=== PATIENT | female | born 1940 | race Caucasian/White ===

== ENCOUNTER → 2018-02-06 16:50 | Outpatient (CLI) | payer MEDICARE, OTHER, SELFPAY ==
[2018-02-06 18:29] LABS: BUN Creatinine Ratio 27.1 (6-22); Blood Urea Nitrogen 19 mg/dL (7-17); Estimated Glomerular Filt Rate > 60.0 mL/min (>60)
== END ==
PROVIDERS: Family Provider Physician Assistant; Visit Provider Physician Assistant
DX: R33.9 Retention of urine, unspecified (principal); R60.9 Edema, unspecified; G20 Parkinson's disease
CPT/HCPCS: 36415; 82565; 84520

== ENCOUNTER → 2018-05-12 10:40 | Outpatient (CLI) | payer MEDICARE, OTHER, SELFPAY ==
[2018-05-12 11:47] LABS: Add Manual Diff / Slide Review NO; Basophils Percent Auto 0.4 % (0-2); Eosinophils Percent Auto 0.8 % (2-4); Hematocrit 43.3 % (36-46); Hemoglobin 14.4 g/dL (12.0-16.0); Lymphocytes Percent Auto 23.7 % (25-40); Mean Corpuscular HGB Conc 33.2 % (30-36); Mean Corpuscular Hemoglobin 31.6 PG (26-34); Mean Corpuscular Volume 95.1 fL (80-100); Monocytes Percent Auto 4.9 % (3-14); Neutrophils Absolute Auto 5300 /uL (3000-5900); Neutrophils Percent Auto 70.2 % (50-75); Platelet Count 198 X10^3/uL (150-400); Red Blood Cell Count 4.55 X10^6/uL (4.0-5.2); Red Cell Distribution Width 13.8 % (11.6-14.8); White Blood Cell Count 7.6 X10^3/uL (4.5-11.0)
[2018-05-12 12:06] LABS: Alanine Aminotransferase 24 IU/L (9-52); Albumin 4.3 g/dL (3.5-5.0); Albumin Globulin Ratio 1.7 (1.0-2.8); Alkaline Phosphatase 62 U/L (38-126); Aspartate Aminotransferase 19 IU/L (14-36); Bilirubin Total 1.1 mg/dL (0.2-1.3); Blood Urea Nitrogen 14 mg/dL (7-17); Calcium 9.9 mg/dL (8.4-10.2); Carbon Dioxide 32 mmol/L (22-32); Chloride 102 mmol/L (98-107); Estimated Glomerular Filt Rate > 60.0 mL/min (>60); Globulin 2.6 g/dL (1.7-4.1); Glucose 98 mg/dL (80-110); HEMOLYSIS < 15 (0-50); Potassium 4.3 mmol/L (3.4-5.1); Sodium 143 mmol/L (137-145); Total Protein 6.9 g/dL (6.3-8.2)
[2018-05-12 13:46] LABS: Bilirubin Urine UA NEGATIVE (NEGATIVE); Color Urine UA YELLOW; Glucose Urine UA NEGATIVE (Normal); Ketones Urine UA TRACE (NEGATIVE); Leukocyte Esterase Urine UA 2+ (NEGATIVE); Nitrite Urine UA POSITIVE (Negative); Occult Blood Urine UA 1+ (Negative); Protein Urine UA 1+ (Negative); Specific Gravity Urine UA 1.015 (1.000-1.035); Urobilinogen Urine UA 0.2 E.U./dL (0.2)
[2018-05-12 13:47] LABS: Appearance Urine UA CLOUDY
[2018-05-12 13:56] LABS: RBC Urine 1-5/HPF (0-5/HPF); WBC Urine 10-30/HPF (0-5/HPF)
[2018-05-12 13:57] LABS: Amorphous Sediment Urine 1+; Bacteria Urine Many (>30); Culture Indicated Urine Specimen Cultured; Mucus Urine 1+ (Negative); Squamous Epithelial Cell Urine 5-10 /HPF; Triple Phosphate Crystal Urine Occasional
== END ==
PROVIDERS: Family Provider Physician Assistant; PCP Physician Assistant; Visit Provider Physician Assistant
DX: G20 Parkinson's disease (principal); R33.9 Retention of urine, unspecified; R60.9 Edema, unspecified
CPT/HCPCS: 36415; 80053; 81003; 81015; 85025; 87086

== ENCOUNTER → 2018-12-09 10:46 | Outpatient (CLI) | payer MEDICARE, OTHER, SELFPAY ==
--- NOTE | 2018-12-09 | DI.US.S_ITS ---
PROCEDURE: US RENAL COMPLETE INDICATIONS: INCOMPLETE BLADDER EMPTYING TECHNIQUE: Real-time scanning was performed of the kidneys and bladder, with image documentation. COMPARISON: [facility], US, ABDOMEN COMPLETE, 10/01/2016, 8:06. [facility], CT, ABDOMEN/PELVIS WITH CONTRAST, 11/06/2016, 11:35. FINDINGS: Kidneys: Kidneys are normal in size. Right kidney measures 10.9 cm long; left kidney measures 11.9 cm long. Right renal cortical thickness is 1.0 cm; left renal cortical thickness is 1.2 cm. Renal cortical echotexture is normal. No hydronephrosis or nephrolithiasis. No suspicious solid mass lesions. Multiple small peripelvic cysts bilaterally. Bladder: Pre-void bladder volume is 1235 mL. Post-void residual is 756 mL. Pre-void images demonstrate no intraluminal masses or stones. On pre-void images, bilateral ureteral jets are not seen with color Doppler interrogation. (Of note, ureteral jets may not be detectable in up to 25% of cases due to insufficient differences in specific gravity between ureteral and bladder urine). Miscellaneous: No free pelvic fluid. Cholelithiasis noted. IMPRESSION: 1. Multiple small bilateral renal peripelvic cysts. 2. Significant urinary bladder postvoid residual estimated at 756 cc. 3. Cholelithiasis. Dictated by: Frank Kingsley [facility] Interpreted: Juma Dewitt MD on 12/09/2018 at 12:07 Approved by: Juma Dewitt M.D. on 12/09/2018 at 14:31
== END ==
PROVIDERS: Family Provider Physician Assistant; PCP Physician Assistant; Visit Provider Urology
DX: R33.9 Retention of urine, unspecified (principal); N28.1 Cyst of kidney, acquired; K80.20 Calculus of gallbladder without cholecystitis without obstruction
CPT/HCPCS: 76770

== ENCOUNTER → 2019-05-31 17:59 | Outpatient (CLI) | payer MEDICARE, OTHER, SELFPAY ==
--- NOTE | 2019-05-31 | DI.MRI.S_ITS ---
PROCEDURE: MR CERVICAL SPINE WO CON INDICATIONS: PARKINSONS DISEASE TECHNIQUE: Noncontrast sagittal T1 spin echo and T2 fast spin echo, sagittal STIR, foraminal oblique sagittal T2 fast spin echo, and axial gradient echo or T2 fast spin echo through the cervical spine. COMPARISON: None. FINDINGS: Image quality: Excellent. Alignment and Curvature: There is normal bony alignment. Bone Marrow: Reactive endplate change is noted adjacent to the C5-C6 disc. Spinal Cord: Visualized spinal cord has normal size and signal. No cerebellar tonsillar herniation. Paraspinous Soft Tissues: No paravertebral masses. Prevertebral soft tissues are normal in thickness. C2-C3: Loss of disc signal. No central stenosis. No neural foraminal narrowing. No neural compression. C3-C4: Loss of disc signal and slight loss of disc height. Mild diffuse disc bulge. Mild narrowing of the central canal. Mild bilateral facet hypertrophy. Mild bilateral neural foraminal narrowing. No neural compression. C4-C5: Loss of disc signal. Mild, diffuse disc bulge. Mild narrowing of the central canal. Mild right and severe left facet hypertrophy. Mild bilateral uncovertebral joint hypertrophy. Severe right and mild left neural foraminal narrowing with slight compression of the exiting right C5 nerve. C5-C6: Loss of disc signal and height. Moderate, diffuse disc bulge. Mild to moderate narrowing of the central canal. Mild bilateral facet hypertrophy. Moderate bilateral uncovertebral joint hypertrophy. Moderate right and mild left neural foraminal narrowing. No neural compression. C6-C7: Loss of disc signal. Mild, diffuse disc bulge. Mild narrowing of the central canal. No neural foraminal narrowing. No neural compression. C7-T1: Loss of disc signal. Mild diffuse disc bulge. No central canal narrowing. No neural foraminal narrowing. No neural IMPRESSION: 1. Multilevel degenerative disc disease. 2. Multilevel facet and uncovertebral arthropathy. 3. Mild to moderate C5-C6 central canal narrowing. Mild C3-C4, C4-C5 and C6-C7 central canal narrowing. 4. Severe right and mild left C4-C5 neural foraminal narrowing. Moderate right and mild left C5-C6 neural foraminal narrowing. Mild bilateral C3-C4 neural foraminal narrowing. 5. Slight compression of the exiting right C5 nerve root secondary to neural foraminal narrowing. Please correlate with clinical data. Dictated by: Lula Gill MD, PhD on 06/01/2019 at 9:45 Approved by: Lula Gill MD, PhD on 06/01/2019 at 9:59
--- NOTE | 2019-05-31 | DI.MRI.S_ITS ---
PROCEDURE: MR THORACIC SPINE WO CON INDICATIONS: PARKINSONS DISEASE TECHNIQUE: Noncontrast sagittal T1 spine echo and T2 fast spin echo, sagittal STIR, axial T1 and T2 fast spin echo through the thoracic spine. COMPARISON: None. FINDINGS: Image quality: Excellent. Alignment and Curvature: There is normal bony alignment. Bone Marrow: Marrow is of normal overall signal. No acute vertebral body compression fractures. Spinal Cord: Visualized spinal cord is normal in size and signal. Paraspinous Soft Tissues: No paravertebral masses. Miscellaneous: Mild to moderate multilevel degenerative disc changes. No central stenosis. No neural foraminal narrowing. No neural compression. Incidental note made of multiple perineural cysts. IMPRESSION: 1. [id number] multilevel degenerative disc disease. 2. No central stenosis 3. No neural foraminal narrowing. 4. No neural compression. Dictated by: Lula Gill MD, PhD on 06/01/2019 at 10:00 Approved by: Lula Gill MD, PhD on 06/01/2019 at 10:03
--- NOTE | 2019-05-31 | DI.MRI.S_ITS ---
PROCEDURE: MR LUMBAR SPINE WO CON INDICATIONS: PARKINSONS DISEASE TECHNIQUE: Noncontrast sagittal T1 spin echo and T2 fast echo, sagittal STIR, axial T1 and T2 fast spin echo through the lumbar spine. In cases with scoliosis, additional coronal T2 fast spin echo may be performed. COMPARISON: [facility], , L-SPINE MINIMUM 4 VIEWS, 12/03/2016, 10:56. FINDINGS: Image quality: Excellent. Alignment and Curvature: 5 lumbar type vertebral bodies are present. There is mild grade 1 retrolisthesis of L1 on L2, L2 on L3, L3 on L4, and L5 on S1. Bone Marrow: Marrow is of normal overall signal. No acute vertebral body compression fractures. Moderate reactive signal within the endplates adjacent to the L2-L3 and L3-L4 intervertebral discs. Mild reactive signal within the template adjacent to the L1-L2, L4-L5, and L5-S1 intervertebral discs. Spinal Cord: Conus medullaris terminates at the lower L2 level. Visualized cord demonstrates normal signal and size. Paraspinous Soft Tissues: No paravertebral masses. L1-L2: Moderate disc height loss and desiccation. Moderate diffuse disc bulge. Mild facet and ligamentum flavum hypertrophy. Mild canal stenosis. Mild bilateral foraminal stenosis. L2-L3: Severe disc height loss. There is a small amount of high T2/fluid signal intensity within the right aspect of the disc. There is moderate diffuse disc bulge with small superimposed broad based right far lateral protrusion. Mild facet and ligamentum flavum hypertrophy bilaterally. Mild canal stenosis. Mild left and moderate right foraminal stenosis. L3-L4: Moderate disc height loss and desiccation. Moderate diffuse disc bulge. Mild facet and ligamentum flavum hypertrophy. Mild canal stenosis. Mild bilateral foraminal stenosis. L4-L5: Moderate disc height loss and desiccation. Mild diffuse disc bulge. Moderate facet and ligamentum flavum hypertrophy. Mild canal stenosis. Mild bilateral foraminal stenosis. L5-S1: Severe disc height loss and desiccation. Mild diffuse disc bulge. Mild bilateral facet hypertrophy. Mild canal stenosis. Mild bilateral foraminal stenosis. IMPRESSION: 1. Small amount of fluid signal within the right aspect of the L2-L3 disc. Differential considerations for this include intradiscal calcium and discitis. Clinical and laboratory correlation recommended. Followup MRI with and without contrast in one month recommended to insure resolution/stability, and to exclude progressive discitis/osteomyelitis. 2. Multilevel degenerative disc and facet disease, as well as ligamentum flavum hypertrophy and epidural lipomatosis. 3. Mild multilevel canal stenoses. 4. Multilevel foraminal stenoses, worst at L2-L3 on the right, where there is moderate foraminal stenosis. Dictated by: Angelica Elizabeth M.D. on 06/01/2019 at 8:51 Approved by: Angelica Elizabeth M.D. on 06/01/2019 at 9:02
== END ==
PROVIDERS: Family Provider Physician Assistant; PCP Physician Assistant; Visit Provider Psychiatry & Neurology Neurology
DX: G20 Parkinson's disease (principal); M51.36 Other intervertebral disc degeneration, lumbar region; M51.37 Other intervertebral disc degeneration, lumbosacral region; M48.061 Spinal stenosis, lumbar region without neurogenic claudication; M48.07 Spinal stenosis, lumbosacral region; E88.2 Lipomatosis, not elsewhere classified; M50.31 Other cervical disc degeneration, high cervical region; M48.02 Spinal stenosis, cervical region; M47.812 Spondylosis without myelopathy or radiculopathy, cervical region; M51.34 Other intervertebral disc degeneration, thoracic region
CPT/HCPCS: 72141; 72146; 72148

== ENCOUNTER → 2019-07-26 10:30 | Outpatient (CLI) | payer MEDICARE, OTHER, SELFPAY ==
[2019-07-26 11:21] LABS: Add Manual Diff / Slide Review NO; Basophils Absolute Auto 0 /uL (0-100); Basophils Percent Auto 0.4 % (0-2); Eosinophils Absolute Auto 0 /uL (0-450); Eosinophils Percent Auto 0.5 % (2-4); Hematocrit 40.4 % (36-46); Hemoglobin 13.6 g/dL (12.0-16.0); Lymphocytes Absolute Auto 1200 /uL (1100-4500); Lymphocytes Percent Auto 16.2 % (25-40); Mean Corpuscular HGB Conc 33.6 % (30-36); Mean Corpuscular Hemoglobin 30.8 PG (26-34); Mean Corpuscular Volume 91.7 fL (80-100); Monocytes Absolute Auto 500 /uL (0-900); Monocytes Percent Auto 5.9 % (3-14); Neutrophils Absolute Auto 5900 /uL (1500-7000); Platelet Count 194 X10^3/uL (150-400); Red Blood Cell Count 4.41 X10^6/uL (4.0-5.2); Red Cell Distribution Width 14.5 % (11.6-14.8); White Blood Cell Count 7.7 X10^3/uL (4.5-11.0)
[2019-07-26 13:17] LABS: Alanine Aminotransferase 10 IU/L (<35); Albumin Globulin Ratio 1.5 (1.0-2.8); Alkaline Phosphatase 43 U/L (38-126); Aspartate Aminotransferase 22 IU/L (14-36); Bilirubin Total 0.8 mg/dL (0.2-1.3); Blood Urea Nitrogen 20 mg/dL (7-17); Calcium 9.6 mg/dL (8.4-10.2); Carbon Dioxide 33 mmol/L (22-32); Chloride 101 mmol/L (98-107); Estimated Glomerular Filt Rate > 60.0 mL/min (>60); Globulin 2.6 g/dL (1.7-4.1); Glucose 90 mg/dL (80-110); HEMOLYSIS 19 (0-50); Sodium 140 mmol/L (137-145); Total Protein 6.6 g/dL (6.3-8.2)
[2019-07-26 15:16] LABS: Bacteria Urine None Seen; RBC Urine None Seen (0-5/HPF); WBC Urine None Seen (0-5/HPF)
[2019-07-26 15:56] LABS: Appearance Urine UA CLEAR; Bilirubin Urine UA NEGATIVE (NEGATIVE); Color Urine UA YELLOW; Glucose Urine UA NEGATIVE (Negative); Ketones Urine UA NEGATIVE (NEGATIVE); Leukocyte Esterase Urine UA NEGATIVE (NEGATIVE); Nitrite Urine UA NEGATIVE (Negative); Occult Blood Urine UA NEGATIVE (Negative); Protein Urine UA NEGATIVE (Negative); Specific Gravity Urine UA <=1.005 (1.000-1.035); Urobilinogen Urine UA 0.2 E.U./dL (0.2)
[2019-07-26 15:58] LABS: pH Urine UA 6.5 (4.5-8.0)
[2019-07-26 16:06] LABS: Culture Indicated Urine Cult Not Indicated; Urine Comments Microscopic Normal
== END ==
PROVIDERS: PCP Physician Assistant; Visit Provider Physician Assistant
DX: R41.0 Disorientation, unspecified (principal); G20 Parkinson's disease; R60.0 Localized edema; Z51.81 Encounter for therapeutic drug level monitoring
CPT/HCPCS: 36415; 80053; 81001; 85025

== ENCOUNTER 2020-03-10 14:20 | Emergency (ER) | payer MEDICARE, OTHER, SELFPAY ==
[2020-03-10 14:45] VITALS: BP 128/60; PULSE 66; RESP 16; TEMP 36.3; O2SAT 98
--- NOTE | 2020-03-10 17:23 | DI.RAD.S_ITS ---
PROCEDURE: XR HIP W PEL IF DONE LT 2V INDICATIONS: pain, swelling, heard pop, able to bear weight TECHNIQUE: AP view of the pelvis and frogleg lateral view of the left hip. COMPARISON: [facility], CT, ABDOMEN/PELVIS WITH CONTRAST, 10/09/2016, 10:50. FINDINGS: Bones: No acute fractures or dislocations. Pelvic ring appears intact. No suspicious bony lesions. Mild bilateral hip degenerative changes are seen with marginal acetabular spurring. Enthesopathy is noted at the anterior superior iliac spines bilaterally. Degenerative changes are seen in the spine at the lumbosacral junction. Soft tissues: The visualized bowel gas pattern is normal. No suspicious soft tissue calcifications. An IUD is seen projecting over the pelvis. IMPRESSION: No acute osseous abnormality. If the symptoms persist with conservative management, consider cross sectional imaging such as CT or MRI for further assessment. Mild degenerative changes in the hips and lower lumbar spine. Dictated by: Db Cannon M.D. on 03/10/2020 at 18:38 Approved by: Db Cannon M.D. on 03/10/2020 at 18:41
[2020-03-10 19:24] VITALS: BP 143/76; PULSE 82; RESP 16; TEMP 36.6; O2SAT 96
--- NOTE | 2020-03-10 21:00 | ED_ITS ---
HPI - Extremity Injury (Lower) <DENILSON Romero-BC - Last Filed: 03/10/20 21:04> General Chief Complaint: Extremity Injury, Lower Stated Complaint: hard lump on left on her side Time Seen by Provider: 03/10/20 16:51 Source: patient and family Mode of arrival: Wheelchair Limitations: altered mental status and physical limitation History of Present Illness HPI Narrative: The patient is a 79-year-old female who presents with her daughter for chief complaint of a lump in her left hip. It on the lateral aspect of her left hip. She denies any recent falls or trauma, though daughter notes that she fell several weeks ago. The daughter states that the patient's caregiver was rolling her recently and felt a ?pop in her hip. Patient states that she is at baseline, is able to ambulate and bear weight per normal. Patient denies any pain. She states she feels normal. Related Data Home Medications Medication Instructions Recorded Confirmed [CARDITONE SUPPLEMENT] 1 cap PO QDAILY #0 11/01/16 03/10/20 cholecalciferol (vitamin D3) 125 10,000 unit PO DAILY 07/27/18 03/10/20 mcg (5,000 unit) capsule carbidopa 50 mg-levodopa 200 1 tab PO BID tab 11/23/19 03/10/20 mg-entacapone 200 mg tablet Previous Rx's Medication Instructions Recorded hydrochlorothiazide 25 mg tablet 25 mg PO QDAY #90 tab 02/29/20 potassium chloride 10 mEq 10 meq PO QDAY #90 tab 02/29/20 tablet,extended release Allergies Allergy/AdvReac Type Severity Reaction Status Date / Time bee venom protein (honey bee) Allergy Intermediate BREATHING Unverified 03/10/20 14:52 DIFFICULTIES, SWELLING AT SITE Review of Systems <VERITO RomeroBC - Last Filed: 03/10/20 21:04> Review of Systems Narrative: GENERAL: Denies chills, fatigue, malaise, fever, sweats. HEENT: Denies sinus pain, ear pain, sore throat, difficulty swallowing, dizziness. RESPIRATORY: Denies dyspnea, cough, wheezing, hemoptysis, sputum. CARDIOVASCULAR: Denies chest pain, palpitations, orthopnea, edema, GASTROINTESTINAL: Denies nausea, vomiting, abdominal pain, diarrhea, constipation, melena. : Denies dysuria, frequency, incontinence, hematuria, urinary retention. MUSCULOSKELETAL: See HPI SKIN: See HPI NEUROLOGIC: Denies weakness, headache, numbness, change in speech, confusion, seizures, incoordination. PSYCHIATRIC: No concerning psychosocial issues. 12 point review of systems is negative except for those stated above Patient History <DASHAWN Romero - Last Filed: 03/10/20 21:04> Medical History Edema of both lower extremities (Chronic) History of urinary retention (Chronic) Parkinsonism (Chronic) Raynauds phenomenon (Suspected) Urinary retention (Chronic) Surgical History History of tonsillectomy Social History Smoking Status: Never smoker second hand exposure: No alcohol intake: current (a glass of red wine every day.) substance use type: does not use Smoking Status: Never smoker Exam <DASHAWN Romero - Last Filed: 03/10/20 21:04> Narrative Exam Narrative: GENERAL: Elderly female no acute distress HEAD: Atraumatic. Normocephalic. No temporal or scalp tenderness. EYES: Pupils equal round and reactive. Extraocular motions intact. No scleral icterus. No injection or drainage. ENT: Nose without bleeding, purulent drainage or septal hematoma. Throat without erythema, tonsillar hypertrophy or exudate. Uvula midline. Airway patent. NECK: Trachea midline. No JVD or lymphadenopathy. Supple, nontender, no meningeal signs. CARDIOVASCULAR: Regular rate and rhythm RESPIRATORY: Clear to auscultation. Breath sounds equal bilaterally. No wheezes, rales, or rhonchi. No cough. No increased respiratory effort. No accessory muscle use. GASTROINTESTINAL: Abdomen soft, non-tender, nondistended. No hepato- splenomegaly, or palpable masses. No guarding. EXTREMITIES: Skin exam as noted with slight protrusion lateral aspect of left hip. Positive pedal pulses bilaterally. Patient has stable gait with 1 assist as per home. No noted pain to palpation. BACK: Nontender without deformity or crepitance. No flank tenderness. NEURO: AOx3. SKIN: 4 x 4 cm blanchable erythema no palpable warmth over noted contusion with slight ecchymosis on lateral aspect of left hip. Initial Vital Signs Initial Vital Signs: Vital Signs Temperature 97.4 F L 03/10/20 14:45 Pulse Rate 66 03/10/20 14:45 Respiratory Rate 16 03/10/20 14:45 Blood Pressure 128/60 03/10/20 14:45 Pulse Oximetry 98 03/10/20 14:45 <Liban Avery DO - Last Filed: 03/11/20 01:49> Initial Vital Signs Initial Vital Signs: Vital Signs Temperature 97.4 F L 03/10/20 14:45 Pulse Rate 66 03/10/20 14:45 Respiratory Rate 16 03/10/20 14:45 Blood Pressure 128/60 03/10/20 14:45 Pulse Oximetry 98 03/10/20 14:45 Scores <DASHAWN Romero - Last Filed: 03/10/20 21:04> GCS Boron coma scale eye opening: Spontaneous Boron coma scale verbal response: Orientated Boron coma scale motor response: Obey commands Boron coma scale total score: 15 Course <DASHAWN oRmero - Last Filed: 03/10/20 21:04> Orders Ordered: ED Orders 03/10/20 17:23 XR hip w pel if done LT 2V Stat Vital Signs Vital signs: Vital Signs - 8 hr 03/10/20 19:24 Temperature 97.8 F Pulse Rate 82 Respiratory Rate 16 Blood Pressure 143/76 H Pulse Oximetry 96 <Liban Avery DO - Last Filed: 03/11/20 01:49> Orders Ordered: ED Orders 03/10/20 17:23 XR hip w pel if done LT 2V Stat Vital Signs Vital signs: Vital Signs - 8 hr 03/10/20 19:24 Temperature 97.8 F Pulse Rate 82 Respiratory Rate 16 Blood Pressure 143/76 H Pulse Oximetry 96 MDM - Extremity Injury (Lower) <DASHAWN Romero - Last Filed: 03/10/20 21:04> Imaging Data Hip x-ray: Radiologist's Impression: [address] [address] XRay Report Signed Patient: Stefany Souza LMR#: [id number] : 2Acct:[id number] Age/Sex: 79 / FDate of Service: 03/10/20 Loc: ED Accession Number: [id number] Procedure: XR hip w pel if done LT 2V Ordering Provider: Scalret Gonzalez PROCEDURE: XR HIP W PEL IF DONE LT 2V INDICATIONS: pain, swelling, heard pop, able to bear weight TECHNIQUE: AP view of the pelvis and frogleg lateral view of the left hip. COMPARISON: [facility], CT, ABDOMEN/PELVIS WITH CONTRAST, 10/09/2016, 10:50. FINDINGS: Bones: No acute fractures or dislocations. Pelvic ring appears intact. No suspicious bony lesions. Mild bilateral hip degenerative changes are seen with marginal acetabular spurring. Enthesopathy is noted at the anterior superior iliac spines bilaterally. Degenerative changes are seen in the spine at the lumbosacral junction. Soft tissues: The visualized bowel gas pattern is normal. No suspicious soft tissue calcifications. An IUD is seen projecting over the pelvis. IMPRESSION: No acute osseous abnormality. If the symptoms persist with conservative management, consider cross sectional imaging such as CT or MRI for further as sessment. Mild degenerative changes in the hips and lower lumbar spine. Dictated by: Db Cannon M.D. on 03/10/2020 at 18:38 Approved by: Db Cannon M.D. on 03/10/2020 at 18:41 MDM Narrative Medical decision making narrative: The patient is a 79-year-old female who presents with a chief complaint of a ?bump on the lateral aspect of left hip. She has no recent trauma. She is neurovascularly intact to denies any pain. Given the ?pop in her hip x-rays were taken no acute findings. X-rays reviewed by Dr Avery. Erythema does raise concern of a stage I pressure injury, so I discussed at length rotating, staying off that hip etcetera. Encouraged follow- up with primary care provider in the next few days. Discussed coming back to the emergency department for any acute concerns. Patient has no questions or concerns upon discharge and states understanding return precautions as well as follow-up care. Discharge Plan Departure Patient Disposition: Home Clinical Impression: Contusion Qualifiers: Encounter type: initial encounter Contusion area: hip Laterality: left Qualified Code(s): S70.02XA - Contusion of left hip, initial encounter Pressure injury of hip, stage 1 Qualifiers: Laterality: left Qualified Code(s): L89.221 - Pressure ulcer of left hip, stage 1 Discharge Date/Time: 03/10/20 19:25 Instructions: How to Prevent Pressure Ulcers, DI for Pressure Injuries, DI for Contusion, How To Perform RICE (Rest, Ice, Compress, Elevate) Activity Restrictions/Additional Instructions: Thank you for trusting us with your care today As I discussed, your x-ray shows no acute fracture. This does not rule out a soft tissue injury such as a ligament or tendon injury. It is important that you follow up with primary care provider, especially if worsening or no improvement. There can be fractures that did not show up on initial x-ray. Please use ice, please be sure to stay off that hip as much as possible. Please follow-up with primary care provider next few days. Please come back to emergency department for any acute concerns. I suggest staying on your right hip instead of your left as able. Prescriptions: No Action cholecalciferol (vitamin D3) 5,000 unit capsule 10,000 unit PO DAILY RF: 0 [CARDITONE SUPPLEMENT] 1 cap PO QDAILY Qty: 0 RF: 0 hydrochlorothiazide 25 mg tablet 25 mg PO QDAY Qty: 90 RF: 1 potassium chloride [K-Tab] 10 mEq tablet extended release 10 meq PO QDAY Qty: 90 RF: 1 ajaetwgwa-fmzsaama-fbpjcynfcm 50-200-200 mg tablet 1 tab PO BID RF: 0 Referrals: Sandoval Padron DO [Primary Care Provider] - <Liban Avery DO - Last Filed: 03/11/20 01:49> [facility] ED Attending Laurenature Attestation: I was immediately available in the department for consultation. This documentation has been reviewed and I agree with assessment and plan. Supervised by Liban Avery DO
== END 2020-03-10 19:25 | disposition home or self-care (01) ==
PROVIDERS: Emergency Provider Nurse Practitioner Family; PCP Family Medicine
DX: L89.221 Pressure ulcer of left hip, stage 1 (principal); S70.02XA Contusion of left hip, initial encounter
CPT/HCPCS: 73502; 99283